=== PATIENT | male | born 1995 | race Caucasian/White ===

== ENCOUNTER 2018-04-22 12:46 | Outpatient (CLI) | payer OTHER, BC ==
--- NOTE | 2018-04-22 17:24 | XRAY Report ---
Reason: CERVICALGIA Procedure Date: 04/22/2018 Accession Number: [id number] / [id number] Procedure: XR - Cervical Spine Complete CPT Code: FULL RESULT: EXAM: CERVICAL SPINE RADIOGRAPHY EXAM DATE: 04/22/2018 01:34 PM. CLINICAL HISTORY: CERVICALGIA. COMPARISONS: None. TECHNIQUE: 5 views. FINDINGS: Alignment: No spondylolisthesis or scoliosis. Bones: The cervical vertebral bodies and posterior elements are well-visualized from the skull base through C7-T1. No fractures or bone lesions. The lateral masses are symmetric. Disks: Disk heights are maintained. Facets: No degenerative disease. Neural Foramina: The neural foramina have bony patency bilaterally. Soft Tissues: No prevertebral soft tissue swelling. The visualized lung apices are clear. IMPRESSION: Normal cervical spine radiography. [facility]
== END 2018-04-22 12:47 | disposition home or self-care (01) ==
LOC: DI 12:46
PROVIDERS: ATTEND Nurse Practitioner Family
DX: M54.2 Cervicalgia (principal)
CPT/HCPCS: 72050

== ENCOUNTER 2018-04-24 19:00 | Outpatient (CLI) | payer OTHER, BC ==
--- NOTE | 2018-04-25 06:31 | XRAY Report ---
Reason: PLEURONDYNIA Procedure Date: 04/24/2018 Accession Number: [id number] / [id number] Procedure: XR - Ribs 2 View LT CPT Code: FULL RESULT: EXAM: LEFT RIB RADIOGRAPHY EXAM DATE: 04/24/2018 07:23 PM. CLINICAL HISTORY: Pleurodynia. COMPARISON: None. TECHNIQUE: 4 views. FINDINGS: Bones: Normal. No fracture or bone lesion. Lungs: No focal opacities evident where seen. No pneumothorax or pleural effusions. Mediastinum: Heart and cardiomediastinal contours are unremarkable. Other: None. IMPRESSION: Negative left ribs. [facility]
== END 2018-04-24 19:01 | disposition home or self-care (01) ==
LOC: DI 19:00
PROVIDERS: ATTEND Nurse Practitioner Family
DX: R07.81 Pleurodynia (principal)